=== PATIENT | female | born 1990 ===

== ENCOUNTER 2025-01-13 07:31 | Day surgery (SDC) | payer OTHER ==
[~2025-01-13] VITALS: Ht 157.5 cm; Wt 69.8 kg
[2025-01-13] MEDS ORDERED: CeFAZolin Sodium 2,000 MG VIAL ONE (07:46)
--- NOTE | 2025-01-13 08:04 | NUR ---
01/13/25 [facility]804 [facility] WONDERLY ORDERED QUANTITATIVE HCG WHICH WAS DONE ON 01/04/25. PER WONDERLY NO NEED TO COMPLETE A 2ND QUANTITATIVE HCG, PER WONDERLY ONLY COMPLETING THE QUALLITATIVE HCG TODAY IN PRE-OP IS JUST FINE.
[2025-01-13] MEDS ORDERED: Bupivacaine 0.5% W/EPI 1:200000 SDV 30 ML Vial ONE (09:14)
[2025-01-13] MEDS ORDERED: Ipratropium/Albuterol SulF 2.5-0.5MG/3 ML Amp ONE (09:20)
[2025-01-13] MEDS ORDERED: FentaNYL Citrate 50 MCG/ML 2 ML Injection ONE (09:25)
[2025-01-13] MEDS ORDERED: Dexamethasone Sod Phos 10 MG/ML 1ML VIAL ONE (09:43)
[2025-01-13] MEDS ORDERED: Midazolam HCl 1MG / ML 2ML Vial ONE (09:43)
[2025-01-13] MEDS ORDERED: Ondansetron HCl 2 MG / ML 2ML Vial ONE (09:54)
--- NOTE | 2025-01-13 10:26 | NUR ---
01/13/25 1026 Alison Gonzalez REPORT RECEIVED FROM LUKASZ AND RN. PT ASLEEP UPON ARRIVAL. VSS. O2 SAT 100% ON RA. NO BLEEDING NOTED ON PERIPAD. IV PATENT. PT NOT AROUSABLE TO VOICE AT THIS TIME. WARM BLANKETS APPLIED TO ABDOMEN
--- NOTE | 2025-01-13 10:49 | NUR ---
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
[2025-01-13 11:07] VITALS: BP 120/79
== END 2025-01-13 11:29 | disposition home or self-care (01) ==
LOC: ORSCSDS 07:31
PROVIDERS: Obstetrics & Gynecology
PROC: 0UBC7ZX Excision of Cervix, Via Natural or Artificial Opening, Diagnostic (ICD-10-PCS; principal; 2025-01-13 09:00)
DX: R87.611 Atypical squamous cells cannot exclude high grade squamous intraepithelial lesion on cytologic smear of cervix (ASC-H) (principal); R87.810 Cervical high risk human papillomavirus (HPV) DNA test positive; F17.210 Nicotine dependence, cigarettes, uncomplicated
CPT/HCPCS: 88305; J0690; J1100; J2250; J2405; J2704; J3010; J7120